=== PATIENT | female | born 1970 | race Hispanic/Latino ===

== ENCOUNTER 2016-12-12 18:45 | Emergency (ER) | payer OTHER ==
[~2016-12-12] VITALS: Ht 154.9 cm; Wt 83.0 kg
[~2016-12-12 18:45] MED LIST: ABILIFY15 MG PO; ABILIFY5 MG OR; ACETTAB3 OR; AMOXICILLIN/CL875 MG OR; AMOXICILLIN/CL875 MG PO; AMOXICILLIN500 MG OR; AMOXICILLIN500 MG PO; AMOXIL500 MG OR; AUGMENTIN500 MG OR; AUGMENTIN875 MG PO; BENTYL10 MG PO; BUTORPHANOL10 MG/ML; CARAFATE OR; CEPHALEXIN500 MG PO; CETIRIZINE10 MG; CIPRO500 MG PO; CIPROFLOXACN500 MG PO; CLARITIN10 M1 PO; CLONAZEP ODT1 MG; EFFEXOR XR75 MG PO; ELIMITE5 % EX; FAMOTIDINE20 M3 PO; FIORICET OR; FIORICET PO; FIORINAL OR; FLEXERIL PO; FLEXERIL5 M1 PO; FLONASE NASAL50 MCG; IBUPROFEN600 MG PO; KEFLEX500 MG OR; KETOROLAC60 MG/2 ML IJ; LAMICTAL100 M1; LANSOPRAZOLE30 MG PO; LOMOTIL2.5 MG OR; LORTAB 10-325 M1 TAB PO; LORTAB 5 OR; LORTAB 5/3255 MG PO; LOVASTATIN10 M1 PO; MEDDOSEPAK PO; METOCLOPRAM10 MG OR; MIRTAZAPINE15 MG; NABUMETONE500 MG PO; NAPROSYN500 MG OR; NAPROSYN500 MG PO; NAPROXEN500 MG OR; NASONEX50 MCG/AC; NEXIUM40 M1 OR; NO HOME MEDS; NO MEDS; NORCO1 TAB PO; OMEPRAZOLE40 MG PO; OXYCOD/APAP1 TA4 PO; PENICILLN VK500 M1 OR; PENICILLN VK500 MG OR; PERCOCET 5/325M1 TAB PO; PERCOCET1 TA2; PERCOCET1 TA3 OR; PHENERGAN12.5 MG/TA PO; PRENATA2 OR; PREVACID30 M1 OR; PREVACID30 M1 PO; PREVACID30 M3 OR; PREVACID30 M3 PO; PRILOSEC40 MG PO; PROAIR HFA IN; PROVERA5 MG OR; REGLAN10 MG OR; ROBAXIN-750750 MG OR; TIZANIDINE4 MG PO; TOBRAMYCIN0.3 % OD; TRAMADOL HCL50 MG PO; TRAZODONE50 MG PO; TRILEPTAL600 M1 OR; TYLENOL500 MG OR; ULTRAM50 M1 OR; ULTRAM50 M1 PO; ULTRAM50 MG OR; VEETIDS500 MG OR; VENTOLIN HF1 IN; XANAX1 MG PO; ZITHROMAX250 MG OR; ZOFRAN ODT4 MG PO; ZOFRAN ODT8 MG PO; ZOFRAN ODT8 MG SL; ZOFRAN4 MG/TAB PO; ZYRTEC10 MG PO
[2016-12-12 20:02] LABS: HEMATOCRIT 35.2 % (37.0-47.0); HEMOGLOBIN 11.8 g/dl (12.0-16.0); IMMATURE GRANULOCYTES 0.3 % (0.0-1.0); MEAN CELL VOLUME 86.5 fL CALC (80.0-100.0); MEAN CORPUSCULAR HGB CONC 33.5 g/L CALC (32.0-36.0); NEUT# 6.52 thou/uL (2.00-7.15); RED BLOOD COUNT 4.07 mill/uL (4.20-5.60); RED CELL DISTRI WIDTH 12.4 % (11.5-15.5)
[2016-12-12 20:10] LABS: ALBUMIN 4.4 g/dL (3.2-5.0); ALKALINE PHOSPHATASE 108 u/l (38-126); ANION GAP 16 (6-22 (CALC)); BILIRUBIN, TOTAL 0.8 mg/dL (0.0-1.4); BUN 15 mg/dL (7-17); BUN/CREATININE RATIO 28 (12-20 (CALC)); CALCIUM 8.9 mg/dL (8.4-10.2); CARBON DIOXIDE 24 mmol/l (22-30); CHLORIDE 102 mmol/l (95-108); CREATININE 0.5 mg/dL (0.5-1.0); GFR > 60 ML/MIN (>=60 (CALC)); GFR FOR AFR.AMER. > 60 ML/MIN (>=60 (CALC)); GLUCOSE 138 mg/dL (65-105); POTASSIUM 3.8 mmol/l (3.5-5.1); SGOT/AST 29 u/l (14-36); SGPT/ALT 32 u/l (9-52); SODIUM 138 mmol/l (137-146); TOTAL PROTEIN 7.8 g/dL (6.3-8.2)
[2016-12-12 20:20] LABS: MYOGLOBIN 28 ng/mL (0 - 62)
[2016-12-12 20:45] LABS: URINE BILIRUBIN - DIPSTICK NEGATIVE (NEGATIVE); URINE BLOOD DIPSTICK TRACE-INTACT (NEGATIVE); URINE CLARITY CLEAR; URINE COLOR YELLOW; URINE GLUCOSE - DIPSTICK NEGATIVE (NEGATIVE); URINE KETONE NEGATIVE (NEGATIVE); URINE LEUK ESTERASE NEGATIVE (NEGATIVE); URINE NITRITE - DIPSTICK NEGATIVE (Negative); URINE PH 5.5 (4.5-8.0); URINE PROTEIN - DIPSTICK NEGATIVE (NEG-TRACE); URINE SPECIFIC GRAVITY >=1.030; URINE UROBILINOGEN - DIPSTICK 0.2 E.U./dL (0.2)
[2016-12-12 20:51] LABS: BARBITURATES NEGATIVE (NEGATIVE); COCAINE NEGATIVE (NEGATIVE); METHADONE NEGATIVE (NEGATIVE); OXCYCODONE NEGATIVE (NEGATIVE); TETRAHYDROCANNABIONOL NEGATIVE (NEGATIVE); TRICYLIC ANTIDEPRESSANTS NEGATIVE (NEGATIVE)
[2016-12-12 22:03] VITALS: BP 147/77
== END 2016-12-12 22:07 | disposition home or self-care (01) | DRG 149 ==
LOC: ED 18:45
PROVIDERS: Emergency Medicine
DX: R42 Dizziness and giddiness (principal); F41.9 Anxiety disorder, unspecified; S00.83XA Contusion of other part of head, initial encounter; S80.02XA Contusion of left knee, initial encounter; S60.512A Abrasion of left hand, initial encounter; F19.10 Other psychoactive substance abuse, uncomplicated; W18.30XA Fall on same level, unspecified, initial encounter; Y93.89 Activity, other specified; Y92.009 Unspecified place in unspecified non-institutional (private) residence as the place of occurrence of the external cause; Z87.442 Personal history of urinary calculi; Z87.11 Personal history of peptic ulcer disease

== ENCOUNTER 2018-03-19 21:54 | Emergency (ER) | payer OTHER ==
[~2018-03-19] VITALS: Ht 154.9 cm; Wt 92.8 kg
[2018-03-19] MEDS ORDERED: SINEQUAN25 MG PO (22:09)
[2018-03-19] MEDS ORDERED: XANAX1 MG PO (22:10)
[2018-03-19] MEDS ORDERED: BENZTROPINE0.5 MG PO (22:10)
[2018-03-19] MEDS ORDERED: TYLENOL # 31 TAB PO (22:34)
[2018-03-19] MEDS ORDERED: VOLTAREN - GENE75 MG PO (22:34)
[2018-03-19 22:55] VITALS: BP 123/71
== END 2018-03-19 22:55 | disposition home or self-care (01) ==
LOC: ED 21:54
DX: G89.29 Other chronic pain (principal); M54.5 Low back pain; Z91.81 History of falling

== ENCOUNTER 2018-07-01 08:21 | Emergency (ER) | payer OTHER ==
[~2018-07-01] VITALS: Ht 154.9 cm; Wt 91.6 kg
[~2018-07-01 08:21] MED LIST changes: +BENZTROPINE0.5 MG PO; +SINEQUAN25 MG PO; +TYLENOL # 31 TAB PO; +VOLTAREN - GENE75 MG PO
[2018-07-01 09:24] VITALS: BP 126/68
[2018-07-01] MEDS ORDERED: AMOXICILLIN500 M2 PO (10:00)
== END 2018-07-01 10:24 | disposition home or self-care (01) ==
LOC: ED 08:21
DX: J02.0 Streptococcal pharyngitis (principal); I10 Essential (primary) hypertension; F43.10 Post-traumatic stress disorder, unspecified; F31.9 Bipolar disorder, unspecified; F41.9 Anxiety disorder, unspecified; R05 Cough; R51 Headache

== ENCOUNTER 2018-09-07 18:21 | Emergency (ER) | payer OTHER ==
[~2018-09-07] VITALS: Ht 154.9 cm; Wt 91.4 kg
[~2018-09-07 18:21] MED LIST changes: +AMOXICILLIN500 M2 PO
[2018-09-07 18:32] VITALS: BP 153/85
== END 2018-09-07 19:33 | disposition left against medical advice (07) ==
LOC: ED 18:21
DX: N93.9 Abnormal uterine and vaginal bleeding, unspecified (principal); I10 Essential (primary) hypertension; Z91.19 Patient's noncompliance with other medical treatment and regimen

== ENCOUNTER 2019-05-10 19:20 | Emergency (ER) | payer OTHER ==
[~2019-05-10] VITALS: Ht 154.9 cm; Wt 94.6 kg
[2019-05-10 22:20] VITALS: BP 140/72
== END 2019-05-10 21:24 | disposition home or self-care (01) ==
LOC: ED 19:20
DX: B34.9 Viral infection, unspecified (principal); I10 Essential (primary) hypertension

== ENCOUNTER 2020-02-11 16:42 | Emergency (ER) | payer OTHER ==
[~2020-02-11] VITALS: Ht 154.9 cm; Wt 88.0 kg
[2020-02-11] MEDS ORDERED: NIZORAL2 % EX (17:44)
[2020-02-11 18:23] VITALS: BP 119/70
== END 2020-02-11 18:23 | disposition home or self-care (01) ==
LOC: ED 16:42
DX: L30.9 Dermatitis, unspecified (principal); I10 Essential (primary) hypertension

== ENCOUNTER 2020-03-21 06:50 | Emergency (ER) | payer OTHER ==
[~2020-03-21] VITALS: Ht 154.9 cm; Wt 100.0 kg
[~2020-03-21 06:50] MED LIST changes: +NIZORAL2 % EX
[2020-03-21 07:43] LABS: HEMOGLOBIN 12.5 g/dl (12.0-16.0); IMMATURE GRANULOCYTES 0.3 % (0.0-5.0); MEAN CELL VOLUME 84.3 fL CALC (80.0-100.0); MEAN CORPUSCULAR HGB 27.7 pG CALC (26.0-32.0); MEAN CORPUSCULAR HGB CONC 32.9 g/dL CAL (32.0-36.0); NEUT# 4.92 thou/uL (2.00-7.15); RED BLOOD COUNT 4.51 mill/uL (4.20-5.60); RED CELL DISTRI WIDTH 12.6 % (11.5-15.5)
[2020-03-21 07:55] LABS: URINE BILIRUBIN - DIPSTICK NEGATIVE (NEGATIVE); URINE BLOOD DIPSTICK TRACE-INTACT (NEGATIVE); URINE COLOR YELLOW; URINE GLUCOSE - DIPSTICK NEGATIVE (NEGATIVE); URINE KETONE NEGATIVE (NEGATIVE); URINE PROTEIN - DIPSTICK NEGATIVE (NEG-TRACE); URINE UROBILINOGEN - DIPSTICK 0.2 E.U./dL (0.2)
[2020-03-21 08:00] LABS: ALBUMIN 3.8 g/dL (3.2-5.0); ALKALINE PHOSPHATASE 150 u/l (38-126); ANION GAP 12 (6-22 (CALC)); BILIRUBIN, TOTAL 0.8 mg/dL (0.0-1.4); BUN 12 mg/dL (7-17); BUN/CREATININE RATIO 22 (12-20 (CALC)); CARBON DIOXIDE 22 mmol/l (22-30); CHLORIDE 109 mmol/l (95-108); CREATININE 0.6 mg/dL (0.5-1.0); GFR > 60 ML/MIN (>=60 (CALC)); GFR FOR AFR.AMER. > 60 ML/MIN (>=60 (CALC)); LIPASE 70 u/l (23-300); POTASSIUM 3.9 mmol/l (3.5-5.1); SGOT/AST 21 u/l (14-36); SODIUM 139 mmol/l (137-146)
[2020-03-21 08:00] LABS: URINE LEUK ESTERASE SMALL (NEGATIVE)
[2020-03-21 08:04] LABS: URINE BACTERIA RARE hpf; URINE CALCIUM OXALATE CRYSTALS FEW lpf; URINE EPITHELIAL CELLS RARE EPI/hpf (0-FEW); URINE NITRITE - DIPSTICK NEGATIVE (Negative)
[2020-03-21] MEDS ORDERED: BENZTROPINE0.5 MG PO (08:17)
[2020-03-21] MEDS ORDERED: TOPIRAMATE25 MG PO (08:17)
[2020-03-21] MEDS ORDERED: ALPRAZOLAM1 MG PO (08:18)
[2020-03-21 08:45] VITALS: BP 134/65
[2020-03-21] MEDS ORDERED: ZOFRAN4 M1 PO (08:55)
[2020-03-21] MEDS ORDERED: CEPHALEXIN500 M1 PO (08:55)
== END 2020-03-21 08:45 | disposition left against medical advice (07) ==
LOC: ED 06:50
PROVIDERS: Family Medicine
DX: N39.0 Urinary tract infection, site not specified (principal); I10 Essential (primary) hypertension; F31.9 Bipolar disorder, unspecified; F41.9 Anxiety disorder, unspecified; B96.20 Unspecified Escherichia coli [E. coli] as the cause of diseases classified elsewhere

== ENCOUNTER 2020-04-22 05:23 | Emergency (ER) | payer OTHER ==
[~2020-04-22] VITALS: Ht 154.9 cm; Wt 93.0 kg
[~2020-04-22 05:23] MED LIST changes: +ALPRAZOLAM1 MG PO; +CEPHALEXIN500 M1 PO; +TOPIRAMATE25 MG PO; +ZOFRAN4 M1 PO
[2020-04-22] MEDS ORDERED: CYCLOBENZAPR5 MG PO (08:32)
[2020-04-22 08:48] VITALS: BP 137/60
[2020-04-22] MEDS ORDERED: MOTRIN400 MG/TAB PO (09:05)
== END 2020-04-22 09:42 | disposition home or self-care (01) ==
LOC: ED 05:23
DX: M54.5 Low back pain (principal); I10 Essential (primary) hypertension; F31.9 Bipolar disorder, unspecified; F41.9 Anxiety disorder, unspecified

== ENCOUNTER 2020-05-01 08:30 | Emergency (ER) | payer OTHER ==
[~2020-05-01] VITALS: Ht 154.9 cm; Wt 100.0 kg
[~2020-05-01 08:30] MED LIST changes: +CYCLOBENZAPR5 MG PO; +MOTRIN400 MG/TAB PO
[2020-05-01 09:14] LABS: URINE BILIRUBIN - DIPSTICK NEGATIVE (NEGATIVE); URINE BLOOD DIPSTICK NEGATIVE (NEGATIVE); URINE COLOR YELLOW; URINE GLUCOSE - DIPSTICK 500 mg/dL (NEGATIVE); URINE KETONE NEGATIVE (NEGATIVE); URINE LEUK ESTERASE NEGATIVE (NEGATIVE); URINE NITRITE - DIPSTICK NEGATIVE (Negative); URINE PROTEIN - DIPSTICK NEGATIVE (NEG-TRACE); URINE SPECIFIC GRAVITY >=1.030; URINE UROBILINOGEN - DIPSTICK 0.2 E.U./dL (0.2)
[2020-05-01] MEDS ORDERED: TAM75CAP PO (10:01)
[2020-05-01 10:30] VITALS: BP 145/74
--- NOTE | 2020-05-03 09:08 | NUR ---
Patient called for Covid results. Advised patient of negative Covid results. Encouraged to continue with Covid prevention. 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
== END 2020-05-01 10:30 | disposition home or self-care (01) ==
LOC: ED 08:30
PROVIDERS: Emergency Medicine
DX: J11.1 Influenza due to unidentified influenza virus with other respiratory manifestations (principal); I10 Essential (primary) hypertension; F31.9 Bipolar disorder, unspecified; F41.9 Anxiety disorder, unspecified; Z20.828 Contact with and (suspected) exposure to other viral communicable diseases

== ENCOUNTER 2020-07-17 07:03 | Emergency (ER) | payer OTHER ==
[~2020-07-17] VITALS: Ht 154.9 cm; Wt 91.8 kg
[~2020-07-17 07:03] MED LIST changes: +TAM75CAP PO
[2020-07-17] MEDS ORDERED: CLARITIN10 M1 PO (09:22)
[2020-07-17] MEDS ORDERED: ZPAK PO (09:22)
[2020-07-17 09:49] VITALS: BP 120/59
== END 2020-07-17 09:56 | disposition home or self-care (01) ==
LOC: ED 07:03
DX: U07.1 COVID-19 (principal); I10 Essential (primary) hypertension; F31.9 Bipolar disorder, unspecified; F41.9 Anxiety disorder, unspecified

== ENCOUNTER 2020-07-20 10:16 | Emergency (ER) | payer OTHER ==
[~2020-07-20] VITALS: Ht 154.9 cm; Wt 105.0 kg
[~2020-07-20 10:16] MED LIST changes: +ZPAK PO
[2020-07-20 12:23] LABS: IMMATURE GRANULOCYTES 0.5 % (0.0-5.0); MEAN CELL VOLUME 80.6 fL CALC (80.0-100.0); MEAN CORPUSCULAR HGB CONC 33.6 g/dL CAL (32.0-36.0); NEUT# 2.5 thou/uL (2.00-7.15); RED BLOOD COUNT 5.51 mill/uL (4.20-5.60); RED CELL DISTRI WIDTH 12.5 % (11.5-15.5)
[2020-07-20 12:27] LABS: HEMATOCRIT 44.4 % (37.0-47.0); HEMOGLOBIN 14.9 g/dl (12.0-16.0)
[2020-07-20 13:16] LABS: ALBUMIN 3.7 g/dL (3.2-5.0); ALKALINE PHOSPHATASE 164 u/l (38-126); BILIRUBIN, TOTAL 0.7 mg/dL (0.0-1.4); BUN 12 mg/dL (7-17); BUN/CREATININE RATIO 34 (12-20 (CALC)); CARBON DIOXIDE 25 mmol/l (22-30); CHLORIDE 99 mmol/l (95-108); CREATININE 0.4 mg/dL (0.5-1.0); GFR > 60 ML/MIN (>=60 (CALC)); GFR FOR AFR.AMER. > 60 ML/MIN (>=60 (CALC)); SODIUM 133 mmol/l (137-146); TOTAL PROTEIN 7.2 g/dL (6.3-8.2)
[2020-07-20 13:18] LABS: ANION GAP 13 (6-22 (CALC)); POTASSIUM 3.9 mmol/l (3.5-5.1)
[2020-07-20 13:21] LABS: SGOT/AST 42 u/l (14-36)
[2020-07-20] MEDS ORDERED: METFORMIN500 M2 PO (13:44)
[2020-07-20 14:10] VITALS: BP 133/61
== END 2020-07-20 14:10 | disposition home or self-care (01) ==
LOC: ED 10:16
PROVIDERS: Family Medicine
DX: U07.1 COVID-19 (principal); R53.83 Other fatigue; E11.9 Type 2 diabetes mellitus without complications; I10 Essential (primary) hypertension; F31.9 Bipolar disorder, unspecified; F41.9 Anxiety disorder, unspecified

== ENCOUNTER 2020-07-27 18:40 | Emergency (ER) | payer OTHER ==
[~2020-07-27] VITALS: Ht 154.9 cm; Wt 93.0 kg
[~2020-07-27 18:40] MED LIST changes: +METFORMIN500 M2 PO
[2020-07-27] MEDS ORDERED: TRAMADOL HYDROC50 MG PO (21:07)
[2020-07-27 21:20] VITALS: BP 130/66
== END 2020-07-27 21:20 | disposition home or self-care (01) ==
LOC: ED 18:40
DX: S70.01XA Contusion of right hip, initial encounter (principal); I10 Essential (primary) hypertension; F31.9 Bipolar disorder, unspecified; F41.9 Anxiety disorder, unspecified; W01.0XXA Fall on same level from slipping, tripping and stumbling without subsequent striking against object, initial encounter; Y92.009 Unspecified place in unspecified non-institutional (private) residence as the place of occurrence of the external cause; Z86.16 Personal history of COVID-19